=== PATIENT | male | born 1970 ===

== ENCOUNTER 2017-12-25 17:36 | Emergency (ER) | payer OTHER ==
[2017-12-25 17:46] VITALS: RESP 18; TEMP 98.9; O2SAT 98
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
[2017-12-25 18:46] VITALS: BP 102/67; PULSE 61
--- NOTE | 2017-12-25 18:46 | RAD ---
PROCEDURE: Radiographs of the Lumbar Spine. HISTORY: injury COMPARISON: No prior. FINDINGS: BONES: There is normal alignment of the lumbar vertebral bodies. There is normal lumbar lordosis. There is no acute fracture, spondylolysis or spondylolisthesis. Bone mineralization is normal. DISC SPACES: There is mild multilevel degenerative disc disease with anterior spurring, reduced disc heights and multilevel facet arthropathy, worse at L4-5. OTHER FINDINGS: There are no pathologic soft tissue calcifications. Both sacroiliac joints are normal. IMPRESSION: No acute fracture, spondylolysis or spondylolisthesis.
--- NOTE | 2017-12-25 18:48 | RAD ---
PROCEDURE: Cervical Spine Radiographs. HISTORY: Pain. COMPARISON: None. FINDINGS: BONES: There is normal alignment of the cervical vertebral bodies. There is straightening of the cervical spine with loss of normal cervical lordosis. Vertebral height is normal. Bone mineralization is normal. There is no acute fracture or traumatic anterior listhesis. The craniocervical junction is normal. The atlantoaxial joint normal. DISC SPACES: There is mild degenerative disc disease at C4-5, C5-6 and C6-7 with anterior spurring and mild reduced disc heights. SOFT TISSUES: Normal. No prevertebral soft tissue swelling. OTHER FINDINGS: None. IMPRESSION: No acute fracture or spondylolisthesis. Straightening of the cervical spine may be positional or related to muscle spasm. Mild degenerative disc disease at C4-5, C5-6 and C6-7.
== END 2017-12-25 18:46 | disposition home or self-care (01) ==
LOC: C.ER 17:36
DX: S16.1XXA Strain of muscle, fascia and tendon at neck level, initial encounter (principal); S39.012A Strain of muscle, fascia and tendon of lower back, initial encounter; V89.2XXA Person injured in unspecified motor-vehicle accident, traffic, initial encounter; Y92.488 Other paved roadways as the place of occurrence of the external cause